=== PATIENT | female | born 1985 | race Caucasian/White ===

== ENCOUNTER 2018-12-25 11:36 | Inpatient (IN) | payer MEDICAID ==
[~2018-12-25] VITALS: Ht 154.9 cm; Wt 62.1 kg
[2018-12-25 00:50] VITALS: BP 110/55
[2018-12-25] MEDS ORDERED: BIRTH CONTROL PILLS (11:53)
[2018-12-25] MEDS ORDERED: ATIVAN0.5 MG PO (11:54)
[2018-12-25] MEDS ORDERED: PERCOCET 5-3251 TAB PO (11:54)
[2018-12-25 12:22] LABS: BASOPHILS 0.1 % (0-2); EOSINOPHILS 0.9 % (0-7); HEMATOCRIT 38.9 % (36.0-48.0); HEMOGLOBIN 13.8 g/dL (12-16); IMMATURE GRANULOCYTES 0.3 % (0-5); LYMPHOCYTES 25.8 % (15-50); MCH 32.1 pg (26.0-34.0); MCHC 35.5 g/dL (31.0-37.0); MCV 90.5 fL (80.0-100.0); MEAN PLATELET VOLUME 9.3 fL (7.4-10.4); MONOCYTES 5.6 % (2-11); NEUTROPHILS 67.3 % (40-80); RDW 12.5 % (11.5-14.5); WBC 11.4 10x3/uL (4.8-10.8)
[2018-12-25 12:32] LABS: APPEARANCE CLEAR (CLEAR); COLOR YELLOW (YELLOW); GLUCOSE NEGATIVE (NEGATIVE); NITRITE NEGATIVE (NEGATIVE); PROTEIN NEGATIVE (NEGATIVE)
[2018-12-25 12:33] LABS: BACTERIA FEW /hpf (NONE SEEN); BILIRUBIN NEGATIVE (NEGATIVE); EPITHELIAL CELLS RARE /hpf (0-5); KETONE MODERATE mg/dL (NEGATIVE); RED CELLS - URINE RARE /hpf (0-5); UROBILINOGEN NORMAL (NORMAL)
[2018-12-25 12:37] LABS: ALBUMIN 3.7 g/dL (3.4-5.0); ALKALINE PHOSPHATASE 51 U/L (46-116); ALT (SGPT) 14 U/L (10-68); AMYLASE - SERUM 65 U/L (25-115); BILIRUBIN - TOTAL 0.33 mg/dL (0.2-1.3); CALC OSMOLALITY 271 mosm/kg (275-300); CALCIUM 8.8 mg/dL (8.5-10.1); CARBON DIOXIDE 25.5 mmol/L (21.0-32.0); CHLORIDE - SERUM 99 mmol/L (98-107); CREATININE - SERUM 0.7 mg/dL (0.6-1.3); GLUCOSE 105 mg/dL (74-106); LIPASE 229 U/L (73-393); POTASSIUM - SERUM 3.7 mmol/L (3.5-5.1); PROTEIN - SERUM 8.8 g/dL (6.4-8.2); SODIUM 137 mmol/L (136-145); UREA NITROGEN 7 mg/dL (7-18); eGFR NON AFRICAN AMERICAN > 90 mL/min (90-120)
[2018-12-25 12:42] LABS: C-REACTIVE PROTEIN 20.4 mg/dL (0.0-0.9)
[2018-12-25 13:00] LABS: PLATELET COUNT 299 10x3/uL (130-400)
--- NOTE | 2018-12-25 15:46 | MORECARE ---
CASE MANAGEMENT DISCHARGE SUMMARY PATIENT: RADHA ALFARO UNIT: [id number] ADM DATE: 12/25/18 AGE: 33 : 81 SEX: F ROOM/BED: D.E06 AUTHOR: DONNA,DOC PHYSICIAN: REFERRING PHYSICIAN: MELINDA LOPEZ MD DATE OF SERVICE: 12/25/18 Discharge Plan Patient Name: RADHA ALFARO Facility: [facility] : 1985 Planned Disposition: Home Anticipated Discharge Date: 12/27/18 Discharge Date: Expected LOS: 2 Initial Reviewer: [email or web address] Initial Review Date: 12/25/2018 Generated: 12/25/18 4:46 pm DCP- Discharge Planning Updated by [email or web address]: Tasia Capone on 12/25/18 2:[address] Patient Name: RADHA ALFARO Admission Status: ER Accout number: [id number] Admission Date: 12-25-2018 : 1985 Admission Diagnosis: Attending: MELINDA LOPEZ Current LOS: 1 Anticipated DC Date: 12-27-2018 Planned Disposition: Home Primary Insurance: MEDICAID [place] Discharge Planning Comments: CM met with patient to complete initial dc planning assessment. CM educated patient on the CM role and verbal consent given by patient to complete assessment. Patient lives at home independently with her . At discharge patient plans to return home and feels this is a safe discharge. CM discussed availability of home health, rehab services, and medical equipment. Patient denied known discharge needs at this time. CM will continue to follow and will assist as needed with dc plans/needs. Learning Support Services Director: Tasia Capone RN, [facility] DCPIA - Discharge Planning Initial Assessment Updated by [email or web address]: Tasia Capone on 12/25/18 3:40 pm * Is the patient Alert and Oriented? Yes * How many steps to enter\exit or inside your home? three * PCP Dr. Rothman * Pharmacy [facility] * Preadmission Environment Home with Family * ADLs Independent * Equipment None * List name and contact numbers for known caregivers / representatives who currently or will assist patient after discharge: Bennett Alfaro - spouse - [phone] * Verbal permission to speak to the caregivers and representatives has been obtained from the patient. Yes * Community resources currently utilized None * Additional services required to return to the preadmission environment? No * Can the patient safely return to the preadmission environment? Yes * Has this patient been hospitalized within the prior 30 days at any hospital? No Patient Name: RADHA ALFARO Page [id number] at 1546 All edits/amendments must be made on the electronic document DICTATION DATE: 12/25/181545 ANIMATED CARTOONS PAINTER: KINGSTON 12/25/18 1546 RPT#: [id number] DC DATE: STATUS: ADM IN [facility] [address] [place] [address] END OF REPORT
[2018-12-25 16:00] VITALS: BP 126/85
[2018-12-25 17:00] VITALS: BP 133/86
[2018-12-25 17:54] VITALS: Ht 154.9 cm; Wt 62.1 kg
--- NOTE | 2018-12-25 18:26 | NUR ---
RECIEVED 33 YO FEMALE PATIENT TO L&D VIA WC FROM ER ACCOMPANIED BY ER STAFF. PT. AMBULATORY TO BED. PIV OF NS INFUSING IN THE LAC AT 100ML/HR PER PUMP. IV SITE WITHOUT S/S OF INFILTRATION. VITALS AND ASSESSMENT OBTAINED. VITALS WNL. ABDOMEN VERY TENDER AND PT REPORTS PAIN WITH LIGHT TOUCH TO THE LEFT LOWER ABDOMEN. PT DESCRIBES THE PAIN A SHARP PAIN WITH ACTIVITY OR JERNIGAN ABDOMEN PALPATED. PT. REPORTS A 5/10 ON NUMERIC PAIN SCALE. PT. ALSO STATED ABDOMEN IS DISTENDED. BS PRESENT X 4. PT. HAS NO SWELLING OF LOWER EXTREMITIES. PT. WITHOUT S/S OF ACUTE DISTRESS.
--- NOTE | 2018-12-25 18:45 | NUR ---
PT. OFFERED PAIN MED AT THIS TIME AND PT. STATES SHE WILL WAIT UNTIL SHE IS READY FOR BED.
--- NOTE | 2018-12-25 19:30 | NUR ---
PATENT LYING IN BED QUIETLY WITH EYES OPEN. PT RATES HER PAIN 6/10. REQUESTING PERCOCET FOR HER ABDOMINAL PAIN AND TYLENOL FOR A HEADACHE. SCD BOOTS PLACED, CONNECTED TO MACHINE AND TURNED ON. ICE WATER, CHICKEN BROTH AND JELLO PROVIDED PER PT REQUEST. BED LOCKED IN LOW POSITION, SIDERAILS UPX2, CALL MONCADA AND TRAY TABLE IN REACH.
--- NOTE | 2018-12-25 19:58 | NUR ---
PERCOCET 5/325MG PO PER PT REQUEST FOR ABDOMINAL PAIN. SEE EMAR
--- NOTE | 2018-12-25 20:00 | NUR ---
TYLENOL 650MG PO PER PT REQUEST FOR HEADACHE 6/10 ON THE PAIN SCALE. SEE EMAR.
--- NOTE | 2018-12-25 20:40 | NUR ---
PAIN REASSESSMENT COMPLETED, PT RATES PAIN 2/10. DENIES NEEDS AT THIS TIME.
--- NOTE | 2018-12-25 20:55 | NUR ---
PT UP TO BATHROOM, VOIDED WITHOUT DIFFICULTY AND PT BACK TO BED. SCD BOOTS REPLACED.
[2018-12-25 21:02] VITALS: BP 123/67
--- NOTE | 2018-12-25 21:02 | NUR ---
SHIFT ASSESSMENT COMPLETED AT THIS TIME, SEE FLOWSHEET.
--- NOTE | 2018-12-25 22:03 | NUR ---
PATIENT MEDICATED WITH FLAGYL 500MG IVPB PER MD ORDERS INFUSING VIA KATIE PUMP AT 100ML/HR.
--- NOTE | 2018-12-25 23:03 | NUR ---
IV FLAGYL INFUSION COMPLETED, NO REACTION NOTED. PT PROVIDED WITH FRESH ICE WATER PER REQUEST. NO FURTHER NEEDS IDENTIFIED. BED REMAINS LOW IN LOCKED POSITION, SIDE RAILS UPX2, CALL MONCADA AND TRAY TABLE IN REACH. WILL CONTINUE TO MONITOR.
[2018-12-26 00:50] VITALS: BP 110/55
--- NOTE | 2018-12-26 00:50 | NUR ---
TYLENOL 650MG PO AND ZOFRAN 4MG SLOW IVP PER MD ORDERS AND PT REQUEST.
--- NOTE | 2018-12-26 02:00 | NUR ---
CALLED TO ROOM BY PATIENT, STATES THAT SHE IS EXTREMEMLY NAUSEOUS. SPRITE PROVIDED AT THIS TIME.
--- NOTE | 2018-12-26 02:25 | NUR ---
GLOBAL UPSTREAM MARKETING MANAGER CALLED TO GET DR SANTANA NUMBER AND PERMISSION TO CALL HIM PER PT REQUEST FOR ANTI NAUSEA MEDICATION. DR LOPEZ CALLED AND GIVEN PT REPORT TO INCLUDE PT RECEIVED ZOFRAN FOR NAUSEA AT 0050 AND CONTINUES TO COMPLAIN OF NAUSEA. NEW ORDER RECEIVED FOR PHENERGAN 25MG IM Q4HRS PRN NAUSEA.
--- NOTE | 2018-12-26 02:29 | NUR ---
PHENERGAN 25MG IM TO LEFT VENTROGLUTEAL AT THIS TIME WITHOUT INCIDENT.
--- NOTE | 2018-12-26 03:42 | NUR ---
NEW BAG OF NS HUNG AT 100ML/HR PER MD ORDERS.
--- NOTE | 2018-12-26 05:15 | NUR ---
PATIENT SLEEPING WITH AUDIBLE SNORING. NO DISTRESS NOTED, WILL CONTINUE TO MONITOR. BED REMAINS LOCKED IN LOW POSITION, SIDERAILS UPX2, CALL MONCADA AND TRAY TABLE IN REACH. WILL CONTINUE TO MONITOR.
--- NOTE | 2018-12-26 06:08 | NUR ---
PATIENT RESTING QUIETLY WITH EYES CLOSED, RESPIRATIONS EVEN AND NON LABORED. NO DISTRESS NOTED. FLAGYL 500MG IVPB STARTED VIA ALARIS PUMP AT 100ML/HR.
[2018-12-26 06:46] LABS: BASOPHILS 0.3 % (0-2); EOSINOPHILS 1.9 % (0-7); HEMATOCRIT 34.8 % (36.0-48.0); IMMATURE GRANULOCYTES 0.1 % (0-5); MCH 30.9 pg (26.0-34.0); MCHC 34.5 g/dL (31.0-37.0); MCV 89.7 fL (80.0-100.0); MEAN PLATELET VOLUME 9.3 fL (7.4-10.4); MONOCYTES 5.2 % (2-11); NEUTROPHILS 62.5 % (40-80); PLATELET COUNT 253 10x3/uL (130-400); RBC 3.88 10x6/uL (4.00-5.40); RDW 12.3 % (11.5-14.5)
--- NOTE | 2018-12-26 07:04 | NUR ---
PT REPORT GIVEN TO AM SHIFT.
[2018-12-26 07:10] LABS: ALBUMIN 2.9 g/dL (3.4-5.0); ALKALINE PHOSPHATASE 40 U/L (46-116); ALT (SGPT) 12 U/L (10-68); BILIRUBIN - TOTAL 0.27 mg/dL (0.2-1.3); CALC OSMOLALITY 275 mosm/kg (275-300); CALCIUM 8.1 mg/dL (8.5-10.1); CARBON DIOXIDE 26.7 mmol/L (21.0-32.0); CHLORIDE - SERUM 104 mmol/L (98-107); CREATININE - SERUM 0.6 mg/dL (0.6-1.3); GLUCOSE 92 mg/dL (74-106); PROTEIN - SERUM 7.1 g/dL (6.4-8.2); SODIUM 139 mmol/L (136-145); UREA NITROGEN 8 mg/dL (7-18); eGFR NON AFRICAN AMERICAN > 90 mL/min (90-120)
[2018-12-26 07:25] LABS: WBC 6.8 10x3/uL (4.8-10.8)
--- NOTE | 2018-12-26 07:30 | NUR ---
RESTING IN BED WITH EYES CLOSED- NOT DISTURBED AT THIS TIME.
[2018-12-26 08:32] VITALS: BP 108/58
--- NOTE | 2018-12-26 08:41 | NUR ---
AWAKENS WHEN ENTERED ROOM. VERBAL RESPONSES APPRO TO QUESTIONS. ASSESSMENT DONE. CLEAR LIQ DIET SERVED.
--- NOTE | 2018-12-26 09:15 | NUR ---
pt requesting iv resited due to placement in acs. attempted x2 without success. pt does not want another nurse to try.
--- NOTE | 2018-12-26 10:15 | NUR ---
PROFESSIONAL MODEL VISITED WITH PT. PROFESSIONAL MODEL STATED PT COULD HAVE REGULAR DIET FOR LUNCH AND SEE HOW SHE TOLERATES. IF PT TOLERATES REGULAR DIET SHE WILL DISCHARGE HOME THIS AFTERNOON ON ORAL ANTIBIOTICS. PT. REPORTS SOME IMPROVEMENT IN THE ABDOMINAL PAIN AND TENDERNESS WITH TOUCH AND ACTIVITY. PT. DENIES NAUSEA AT THIS TIME.
--- NOTE | 2018-12-26 12:06 | NUR ---
PT. AWAKE AND ALERT SITTING UP IN BED WATCHING TV. PT. DENIES PAIN AT THIS TIME. WATER REFILLED AND TAKEN TO PT.
--- NOTE | 2018-12-26 12:47 | NUR ---
SITTING UP IN BED EATING REG DIET.
--- NOTE | 2018-12-26 13:00 | NUR ---
DR LOPEZ HERE TO SEE PT.
[2018-12-26 13:13] VITALS: BP 101/63
[2018-12-26] MEDS ORDERED: LEVAQUIN750 MG PO (14:04)
[2018-12-26] MEDS ORDERED: FLAGYL500 MG PO (14:06)
--- NOTE | 2018-12-26 14:14 | NUR ---
SPOKE WITH DR LOPEZ NURSE PRACTIONER- STATES THAT DISCHARGE ORDERS ARE PLACED AT THIS TIME. NOTIFIED CASE MANAGEMENT OF PT PT ORDERS.
--- NOTE | 2018-12-26 14:46 | NUR ---
DEONDREA -TECH FORM MED 2 CALLS UNIT AND STATES THAT SHE WILL INFORM -HOUSE CALLS OF PT AND FAX THEM PT MED REC AND FACE SHEETS. THIS NURSE INFORMS Errol ALEXANDRA RN OF ORDER - SHE IS GOING TO SPEAK WITH CASE MANAGEMENT.
--- NOTE | 2018-12-26 15:31 | NUR ---
IV DISCONTINUED- PRESSURE HELD AND BANDAIDE APPLIED-CATH TIP INTACT. DISCHARGE INST GIVEN- SEE PRINTED FORMS. BLAND DIET, DIVERTICULITUS. PT MED REC GIVEN. ALONG WITH DRUG DATA INFO SHEETS. PT REVIEWS DISCHARGE INST. INST TO F/U WITH DR MALDONADO.
--- NOTE | 2018-12-26 16:40 | NUR ---
PT AMBULATORY OFF UNIT WITH FAMILY.
--- NOTE | 2018-12-27 17:01 | MORECARE ---
CASE MANAGEMENT DISCHARGE SUMMARY PATIENT: RADHA ALFARO UNIT: [id number] ADM DATE: 12/25/18 AGE: 33 : 81 SEX: F ROOM/BED: D.1274 AUTHOR: DONNA,DOC PHYSICIAN: REFERRING PHYSICIAN: MELINDA LOPEZ MD DATE OF SERVICE: 12/27/18 Discharge Plan Patient Name: RADHA ALFARO Facility: [facility]:[place] : 1985 Planned Disposition: Home Anticipated Discharge Date: 12/27/18 Discharge Date: 12/26/2018 Expected LOS: 2 Initial Reviewer: [email or web address] Initial Review Date: 12/25/2018 Generated: 12/27/18 6:01 pm DCP- Discharge Planning Updated by [email or web address]: Tasia Capone on 12/25/18 2:[address] Patient Name: RADHA ALFARO Admission Status: ER Accout number: [id number] Admission Date: 12-25-2018 : 1985 Admission Diagnosis: Attending: MELINDA LOPEZ Current LOS: 1 Anticipated DC Date: 12-27-2018 Planned Disposition: Home Primary Insurance: MEDICAID [place] Discharge Planning Comments: CM met with patient to complete initial dc planning assessment. CM educated patient on the CM role and verbal consent given by patient to complete assessment. Patient lives at home independently with her . At discharge patient plans to return home and feels this is a safe discharge. CM discussed availability of home health, rehab services, and medical equipment. Patient denied known discharge needs at this time. CM will continue to follow and will assist as needed with dc plans/needs. 7Th Grade Teacher: Tasia Capone RN, [facility] DCPIA - Discharge Planning Initial Assessment Updated by [email or web address]: Tasia Capone on 12/25/18 3:40 pm * Is the patient Alert and Oriented? Yes * How many steps to enter\exit or inside your home? three * PCP Dr. Rothman * Pharmacy [facility] the [facility] * Preadmission Environment Home with Family * ADLs Independent * Equipment None * List name and contact numbers for known caregivers / representatives who currently or will assist patient after discharge: Bennett Alfaro - spouse - [phone] * Verbal permission to speak to the caregivers and representatives has been obtained from the patient. Yes * Community resources currently utilized None * Additional services required to return to the preadmission environment? No * Can the patient safely return to the preadmission environment? Yes * Has this patient been hospitalized within the prior 30 days at any hospital? No Last DP export: 12/25/18 2:46 p Patient Name: RADHA ALFARO Page [id number] at 1701 All edits/amendments must be made on the electronic document DICTATION DATE: 12/27/181700 CYANIDE POT HARDENER: KINGSTON 12/27/181700 RPT#: [id number] DC DATE:12/26/18 STATUS: DIS IN [facility] [address] [place] [address] END OF REPORT
== END 2018-12-26 16:40 | disposition home or self-care (01) | DRG 392 ==
LOC: D.ER 11:36 → D.EDHOLD 14:48 → D.LD 14:48
PROVIDERS: Family Medicine; ADMIT Internal Medicine Nephrology
DX: K57.92 Diverticulitis of intestine, part unspecified, without perforation or abscess without bleeding (principal); F41.9 Anxiety disorder, unspecified; I10 Essential (primary) hypertension

== ENCOUNTER → 2019-11-12 07:24 | Outpatient (CLI) | payer MEDICAID ==
[~2019-11-12 07:24] MED LIST: ATIVAN0.5 MG PO; BIRTH CONTROL PILLS; FLAGYL500 MG PO; LEVAQUIN750 MG PO; PERCOCET 5-3251 TAB PO
== END | disposition home or self-care (01) ==
LOC: D.CT 07:24
PROVIDERS: ATTEND Obstetrics & Gynecology
DX: N20.0 Calculus of kidney (principal)

== ENCOUNTER 2020-01-20 22:23 | Emergency (ER) | payer MEDICAID ==
[~2020-01-20] VITALS: Ht 160 cm; Wt 66.8 kg
[~2020-01-20 22:23] MED LIST changes: +FIBER LAXATIVE500 MG PO; +HYDROCODON-ACE1 EA10 PO; +MIRALAX17 GM PO; +PROTONIX20 MG PO
[2020-01-20 22:49] VITALS: Ht 160 cm; Wt 66.8 kg
[2020-01-20] MEDS ORDERED: MEDROL DOSE PACK4 MG PO (22:50)
[2020-01-21 00:07] LABS: HEMATOCRIT 36.1 % (36.0-48.0); HEMOGLOBIN 12.7 g/dL (12-16); LYMPHOCYTES 30.4 % (15-50); MCH 30.5 pg (26.0-34.0); MCHC 35.2 g/dL (31.0-37.0); MCV 86.8 fL (80.0-100.0); MEAN PLATELET VOLUME 8.7 fL (7.4-10.4); NEUTROPHILS 63.5 % (40-80); PLATELET COUNT 311 10x3/uL (130-400); RBC 4.16 10x6/uL (4.00-5.40)
[2020-01-21 00:12] LABS: CALC OSMOLALITY 258 mosm/kg (275-300); CALCIUM 8.4 mg/dL (8.5-10.1); CARBON DIOXIDE 28.6 mmol/L (21.0-32.0); CHLORIDE - SERUM 100 mmol/L (98-107); CREATININE - SERUM 0.6 mg/dL (0.6-1.3); GLUCOSE 110 mg/dL (74-106); POTASSIUM - SERUM 3.5 mmol/L (3.5-5.1); SODIUM 129 mmol/L (136-145); UREA NITROGEN 11 mg/dL (7-18); eGFR NON AFRICAN AMERICAN > 90 mL/min (90-120)
[2020-01-21 00:17] LABS: ALBUMIN 3.6 g/dL (3.4-5.0); ALKALINE PHOSPHATASE 63 U/L (30-120); ALT (SGPT) 21 U/L (10-68); BILIRUBIN - TOTAL 0.32 mg/dL (0.2-1.3); PROTEIN - SERUM 7.6 g/dL (6.4-8.2)
[2020-01-21] MEDS ORDERED: AUGMENTIN 875-11 TAB PO (01:58)
[2020-01-21 02:15] VITALS: BP 117/60
== END 2020-01-21 02:15 | disposition home or self-care (01) ==
LOC: D.ER 22:23
PROVIDERS: Family Medicine
DX: K91.872 Postprocedural seroma of a digestive system organ or structure following a digestive system procedure (principal); L03.90 Cellulitis, unspecified

== ENCOUNTER 2020-07-12 10:55 | Emergency (ER) | payer MEDICAID ==
[~2020-07-12 10:55] MED LIST changes: +AUGMENTIN 875-11 TAB PO; +MEDROL DOSE PACK4 MG PO
[2020-07-12 11:02] VITALS: Ht 160 cm
[2020-07-12 11:25] LABS: BASOPHILS 0.1 % (0-2); HEMATOCRIT 39.6 % (36.0-48.0); HEMOGLOBIN 13.9 g/dL (12-16); IMMATURE GRANULOCYTES 0.3 % (0-5); LYMPHOCYTES 23.7 % (15-50); MCH 31.2 pg (26.0-34.0); MCHC 35.1 g/dL (31.0-37.0); MCV 88.8 fL (80.0-100.0); MEAN PLATELET VOLUME 8.9 fL (7.4-10.4); MONOCYTES 6.5 % (2-11); NEUTROPHILS 68.4 % (40-80); PLATELET COUNT 277 10x3/uL (130-400); RBC 4.46 10x6/uL (4.00-5.40); RDW 12.1 % (11.5-14.5); WBC 11.1 10x3/uL (4.8-10.8)
[2020-07-12 11:38] LABS: CALC OSMOLALITY 271 mosm/kg (275-300); CARBON DIOXIDE 27.3 mmol/L (21.0-32.0); CHLORIDE - SERUM 103 mmol/L (98-107); CREATININE - SERUM 0.8 mg/dL (0.6-1.3); GLUCOSE 94 mg/dL (74-106); POTASSIUM - SERUM 3.5 mmol/L (3.5-5.1); SODIUM 137 mmol/L (136-145); UREA NITROGEN 7 mg/dL (7-18); eGFR NON AFRICAN AMERICAN 86 mL/min (90-120)
[2020-07-12 11:44] LABS: ALBUMIN 3.9 g/dL (3.4-5.0); ALKALINE PHOSPHATASE 71 U/L (30-120); ALT (SGPT) 20 U/L (10-68); AMYLASE - SERUM 56 U/L (25-115); BILIRUBIN - TOTAL 0.49 mg/dL (0.2-1.3); LIPASE 125 U/L (73-393); PROTEIN - SERUM 8.1 g/dL (6.4-8.2)
[2020-07-12 11:45] LABS: BILIRUBIN NEGATIVE (NEGATIVE); KETONE NEGATIVE (NEGATIVE); NITRITE NEGATIVE (NEGATIVE); UROBILINOGEN NORMAL (NORMAL)
[2020-07-12 11:49] LABS: HCG SERUM NEGATIVE (NEGATIVE)
[2020-07-12] MEDS ORDERED: FLAGYL500 MG PO (17:03)
[2020-07-12] MEDS ORDERED: LEVOFLOXACIN500 MG PO (17:03)
[2020-07-12] MEDS ORDERED: ZOFRAN4 MG PO (17:03)
[2020-07-12 17:38] VITALS: BP 113/38
== END 2020-07-12 17:39 | disposition home or self-care (01) ==
LOC: D.ER 10:55
PROVIDERS: Family Medicine
DX: K57.92 Diverticulitis of intestine, part unspecified, without perforation or abscess without bleeding (principal); R10.30 Lower abdominal pain, unspecified; D27.0 Benign neoplasm of right ovary; N20.0 Calculus of kidney